=== PATIENT | female | born 1980 | race African-American/Black ===

== ENCOUNTER 2018-01-03 17:27 | Emergency (ER) | payer BC ==
[~2018-01-03] VITALS: Ht 162.6 cm; Wt 104.3 kg
[2018-01-03] MEDS ORDERED: PREDNISONE 20 M20 MG PO (18:28)
[2018-01-03] MEDS ORDERED: NORCO 10-325 T1 EACH PO (18:28)
[2018-01-03 19:00] VITALS: BP 167/81
== END 2018-01-03 19:03 | disposition home or self-care (01) ==
LOC: ER 17:27
DX: M25.512 Pain in left shoulder (principal)